=== PATIENT | male | born 1945 | race Caucasian/White ===

== ENCOUNTER 2020-10-12 05:25 | Day surgery (SDC) | payer MEDICARE ==
[2020-10-07 12:41] LABS: BASOPHILS # (AUTO) 0.1 X10'3 (0-0.2); MONOCYTES # (AUTO) 0.3 X10'3 (0-0.9)
[2020-10-07 12:43] LABS: EOSINOPHILS # (AUTO) 0.4 X10'3 (0-0.9); EOSINOPHILS % (AUTO) 4.2 % (0-6); HEMATOCRIT 37.4 % (42.0-52.0); HEMOGLOBIN 12.5 g/dl (14.0-17.9); LYMPHOCYTES # (AUTO) 4.7 X10'3 (1.1-4.8); MEAN CORPUSCULAR HGB CONC 33.5 g/dL (33.0-36.5); MEAN CORPUSCULAR VOLUME 95.5 FL (78-98); MEAN PLATELET VOLUME 9.4 FL (7.4-10.4); MONOCYTES % (AUTO) 3.7 % (2-12); NEUTROPHILS # (AUTO) 3.3 X10'3 (1.8-7.7); NEUTROPHILS % (AUTO) 38.1 % (42-75); PLATELET COUNT 230 X10'3 (140-440); RED BLOOD COUNT 3.92 X10'6 (4.70-6.10); RED CELL DISTRIBUTION WIDTH 14.5 % (11.5-14.5); WHITE BLOOD COUNT 8.8 X10'3 (4.5-11.0)
[2020-10-07 12:50] LABS: ALBUMIN 3.8 G/DL (3.4-5.0); ANION GAP 11 (8-16); BLOOD UREA NITROGEN 18 MG/DL (7-18); BUN/CREATININE RATIO 17.6 (5.4-32.0); CALCIUM 8.6 MG/DL (8.5-10.1); CHLORIDE 105 MMOL/L (99-107); CREATININE 1.02 MG/DL (0.60-1.10); GLUCOSE 121 MG/DL (70-104); POTASSIUM 4.3 MMOL/L (3.5-5.1); SODIUM 141 MMOL/L (135-145); TOTAL CARBON DIOXIDE 25.4 MMOL/L (24-32); eGFR 71 ML/MIN
[2020-10-07 12:52] LABS: PARTIAL THROMBOPLASTIN TIME 29 SECONDS (22-32)
[2020-10-07 13:26] LABS: TOTAL CELLS COUNTED 100
[2020-10-07 13:27] LABS: BURR CELLS FEW; ELLIPTOCYTES FEW; PLATELET ESTIMATE NORMAL
[2020-10-12] VITALS (10 sets, daily range): BP systolic 86–132; BP diastolic 53–75
[~2020-10-12] VITALS: Ht 180.3 cm; Wt 78.9 kg
[~2020-10-12 05:25] MED LIST: ASPI-12 PO; ATOR-2 PO; CHOL10002 PO; IRBE75TA8 PO; MAGN400C PO; METF-900 PO; PANT-47 PO
[2020-10-12] MEDS ORDERED: LOSA100T57 PO (05:51)
[2020-10-12] MEDS ORDERED: PANT-47 PO (05:51)
[2020-10-12] MEDS ORDERED: AMLO5TAB PO (05:51)
[2020-10-12] MEDS ORDERED: HYDR12.55 PO (05:51)
[2020-10-12] MEDS ORDERED: LIDOcaine/PRILOcaine 5gm cream TP ONE (06:00)
[2020-10-12] MEDS ORDERED: LORazepam 0.5 MG tablet PO PRN (06:00)
[2020-10-12] MEDS ORDERED: normal saline 1,000 ML IV SCH (06:00)
[2020-10-12] MEDS ORDERED: diphenhydrAMINE 25mg capsule PO PRN (06:00)
[2020-10-12] MEDS ORDERED: midazolam 1 mg/ML 2ml injection ONE (06:29)
[2020-10-12] MEDS ORDERED: verapamil 2.5 mg/ml inj IV ONE (06:29)
[2020-10-12] MEDS ORDERED: nitroGLYCERIN-Tridil 50MG/D5W 250 ML IV ONE (06:29)
[2020-10-12] MEDS ORDERED: fentaNYL/PF 50MCG/1 ML 2ML syringe ONE (06:30)
[2020-10-12] MEDS ORDERED: iohexol 350MG/ML 100ml bottle IV ONE (06:30)
[2020-10-12] MEDS ORDERED: heparin 1,000unit/ml 10ml vial 10 ML ONE (06:30)
[2020-10-12] MEDS ORDERED: LIDOcaine 1% (10mg/ml)w/preservative injection 20ml MDV ONE (06:30)
[2020-10-12] MEDS ORDERED: atropine 0.1mg/ml 10ml syringe ONE (07:11)
[2020-10-12] MEDS ORDERED: ondansetron/PF 4mg/2ml inj ONE (07:11)
[2020-10-12] MEDS ORDERED: HYDROcodone/acetaminophen 10/325mg tab PO PRN (07:50)
[2020-10-12] MEDS ORDERED: HYDROcodone/acetaminophen 5mg/325mg tablet PO PRN (07:50)
[2020-10-12] MEDS ORDERED: ondansetron/PF 4mg/2ml inj IV PRN (07:50)
[2020-10-12] MEDS ORDERED: OXAZEpam 15mg capsule PO PRN (07:50)
[2020-10-12] MEDS ORDERED: proCHLORperazine 10 MG/2 ml inj IV PRN (07:50)
--- NOTE | 2020-10-12 12:49 | NUR ---
Patient was in a hurry to pr as they had another appointment to get to, discharge information was discussed with patient, however I forgot to have patient sign the discharge paperwork. Patients , tosha was called and I went over all the discharge instructions again, follow up apt, and continued meds, no new medications, and patients understands all instructions. notified to hold metformin for 24 hours. Patient will followup with Dr. Garcia and dr. zuleta in November.
== END 2020-10-12 12:20 | disposition home or self-care (01) ==
LOC: SSTAY O 05:25
PROVIDERS: ATTEND Internal Medicine Interventional Cardiology
DX: I25.10 Atherosclerotic heart disease of native coronary artery without angina pectoris (principal); R94.30 Abnormal result of cardiovascular function study, unspecified; E11.9 Type 2 diabetes mellitus without complications; I10 Essential (primary) hypertension; I35.0 Nonrheumatic aortic (valve) stenosis; I34.0 Nonrheumatic mitral (valve) insufficiency; I45.10 Unspecified right bundle-branch block; R53.83 Other fatigue
CPT/HCPCS: 36415; 80048; 82948; 85007; 85025; 85610; 85730; 93454; C1769; C1894; J0461; J1644; J2001; J2250; J2405; J3010; J7030; Q0163; Q9967; 99152; A4620; A5120; J3490

== ENCOUNTER 2023-05-12 08:59 | Emergency (ER) | payer MEDICARE ==
[~2023-05-12] VITALS: Ht 180.3 cm; Wt 81.8 kg
[~2023-05-12 08:59] MED LIST changes: +AMLO5TAB PO; -CHOL10002 PO; +HYDR12.55 PO; -IRBE75TA8 PO; +LOSA100T58 PO
[2023-05-12 09:04] VITALS: BP 151/86; PULSE 59; TEMP 97.8; O2SAT 98
[2023-05-12 10:03] VITALS: RESP 16
[2023-05-12] MEDS ORDERED: METH4TAB81 PO ×3 (10:31→10:37)
[2023-05-12] MEDS ORDERED: AMOX500C2 PO ×3 (10:31→10:37)
== END 2023-05-12 10:37 | disposition home or self-care (01) ==
LOC: ER 08:59
DX: R68.84 Jaw pain (principal); K08.89 Other specified disorders of teeth and supporting structures; E78.00 Pure hypercholesterolemia, unspecified; I10 Essential (primary) hypertension; E11.9 Type 2 diabetes mellitus without complications; Z79.899 Other long term (current) drug therapy; Z79.82 Long term (current) use of aspirin
CPT/HCPCS: 99283

== ENCOUNTER 2023-06-15 13:40 | Emergency (ER) | payer MEDICARE ==
[~2023-06-15] VITALS: Ht 180.3 cm; Wt 81.6 kg
[~2023-06-15 13:40] MED LIST changes: +AMOX500C2 PO; +METH4TAB81 PO
[2023-06-15 16:26] VITALS: BP 134/80; PULSE 80; RESP 16; TEMP 98.1; O2SAT 94
== END 2023-06-15 16:29 | disposition home or self-care (01) ==
LOC: ER 13:41
DX: S69.92XA Unspecified injury of left wrist, hand and finger(s), initial encounter (principal); E78.00 Pure hypercholesterolemia, unspecified; I10 Essential (primary) hypertension; E11.9 Type 2 diabetes mellitus without complications; Z79.899 Other long term (current) drug therapy; Z79.82 Long term (current) use of aspirin; Z79.2 Long term (current) use of antibiotics; X58.XXXA Exposure to other specified factors, initial encounter; Y93.89 Activity, other specified; Y92.89 Other specified places as the place of occurrence of the external cause; Y99.8 Other external cause status
CPT/HCPCS: 73130; 99284

== ENCOUNTER 2023-06-21 17:48 | Emergency (ER) | payer MEDICARE ==
[~2023-06-21] VITALS: Ht 180.3 cm; Wt 83.5 kg
[2023-06-21 18:30] VITALS: BP 156/75; PULSE 103; RESP 18; TEMP 100.6; O2SAT 97
[2023-06-21] MEDS ORDERED: AZIT250T PO (20:48)
[2023-06-21] MEDS ORDERED: PRED10TA23 PO (20:48)
[2023-06-21] MEDS ORDERED: ALBU8HFA INH (20:49)
== END 2023-06-21 21:00 | disposition home or self-care (01) ==
LOC: ER 17:49
DX: U07.1 COVID-19 (principal); M79.18 Myalgia, other site; E78.00 Pure hypercholesterolemia, unspecified; I10 Essential (primary) hypertension; E11.9 Type 2 diabetes mellitus without complications; I25.10 Atherosclerotic heart disease of native coronary artery without angina pectoris; Z79.2 Long term (current) use of antibiotics; Z88.8 Allergy status to other drugs, medicaments and biological substances; Z79.899 Other long term (current) drug therapy
CPT/HCPCS: 36415; 71045; 87502; 87503; 87811; 99284

== ENCOUNTER 2023-07-07 10:41 | Emergency (ER) | payer MEDICARE ==
[~2023-07-07] VITALS: Ht 180.3 cm; Wt 80.0 kg
[~2023-07-07 10:41] MED LIST changes: +ALBU8HFA INH; +AZIT250T PO
[2023-07-07] MEDS ORDERED: LIDOcaine 1% W/epiNEPHrine 1:200,000 10ml vial IJ ONE (11:25)
[2023-07-07] MEDS: LIDOcaine 1% W/epiNEPHrine 1:100,000 20ml vial IJ ONE (11:38)
[2023-07-07 12:59] VITALS: BP 163/90; PULSE 63; RESP 16; TEMP 98.5; O2SAT 98
== END 2023-07-07 13:00 | disposition home or self-care (01) ==
LOC: ER 10:42
DX: L76.22 Postprocedural hemorrhage of skin and subcutaneous tissue following other procedure (principal); E11.9 Type 2 diabetes mellitus without complications; I10 Essential (primary) hypertension; E78.00 Pure hypercholesterolemia, unspecified; I25.10 Atherosclerotic heart disease of native coronary artery without angina pectoris; Z72.89 Other problems related to lifestyle; Z88.8 Allergy status to other drugs, medicaments and biological substances; Z79.899 Other long term (current) drug therapy; Z79.82 Long term (current) use of aspirin; Z97.2 Presence of dental prosthetic device (complete) (partial)
CPT/HCPCS: 99281; 99282; A6449

== ENCOUNTER 2023-11-01 18:48 | Emergency (ER) | payer MEDICARE ==
[~2023-11-01] VITALS: Ht 180.3 cm; Wt 81.8 kg
[~2023-11-01 18:48] MED LIST changes: -ALBU8HFA INH
[2023-11-01] MEDS: ketorolac tromethamine 15mg/ml inj. IM ONE (21:05)
[2023-11-01] MEDS: ondansetron 4mg rapidly disintigrating tab PO ONE (21:13)
[2023-11-01 22:26] VITALS: BP 134/87; PULSE 68; RESP 18; TEMP 98.3; O2SAT 99
== END 2023-11-01 22:35 | disposition home or self-care (01) ==
LOC: ER 18:48
DX: M25.561 Pain in right knee (principal); I25.10 Atherosclerotic heart disease of native coronary artery without angina pectoris; E78.00 Pure hypercholesterolemia, unspecified; I10 Essential (primary) hypertension; E11.9 Type 2 diabetes mellitus without complications; Z72.89 Other problems related to lifestyle; Z91.013 Allergy to seafood; Z79.2 Long term (current) use of antibiotics; Z79.82 Long term (current) use of aspirin; Z79.899 Other long term (current) drug therapy; Z79.84 Long term (current) use of oral hypoglycemic drugs; Z79.52 Long term (current) use of systemic steroids
CPT/HCPCS: 73564; 93971; 96372; 99285; J1885

== ENCOUNTER 2023-12-01 12:48 | Emergency (ER) | payer MEDICARE ==
[~2023-12-01] VITALS: Ht 180.3 cm; Wt 80.0 kg
[2023-12-01 12:51] VITALS: TEMP 98.7
[2023-12-01 13:53] LABS: BASOPHILS # (AUTO) 0.1 X10'3 (0-0.2); BASOPHILS % (AUTO) 0.7 % (0-1); EOSINOPHILS # (AUTO) 0.2 X10'3 (0-0.9); EOSINOPHILS % (AUTO) 1.8 % (0-6); HEMATOCRIT 27.7 % (42.0-52.0); HEMOGLOBIN 9.3 g/dl (14.0-17.9); LYMPHOCYTES # (AUTO) 4.3 X10'3 (1.1-4.8); LYMPHOCYTES % (AUTO) 38.7 % (21-51); MEAN CORPUSCULAR HEMOGLOBIN 32.8 PG (27.0-31.0); MEAN CORPUSCULAR HGB CONC 33.4 g/dL (33.0-36.5); MONOCYTES # (AUTO) 0.4 X10'3 (0-0.9); MONOCYTES % (AUTO) 3.3 % (2-12); NEUTROPHILS # (AUTO) 6.1 X10'3 (1.8-7.7); NEUTROPHILS % (AUTO) 55.5 % (42-75); PLATELET COUNT 242 X10'3 (140-440); RED BLOOD COUNT 2.83 X10'6 (4.70-6.10); RED CELL DISTRIBUTION WIDTH 14.7 % (11.5-14.5); WHITE BLOOD COUNT 11.1 X10'3 (4.5-11.0)
[2023-12-01 14:08] LABS: APTT 53 SECONDS (22-32); INR 3.3 INR; PROTHROMBIN TIME 32.5 SECONDS (9.0-12.0)
[2023-12-01 14:15] LABS: ALANINE AMINOTRANSFERASE 31 U/L (12-78); ALBUMIN 3.4 G/DL (3.4-5.0); ALBUMIN/GLOBULIN RATIO 0.9 (1.1-1.5); ALKALINE PHOSPHATASE 99 IU/L (46-116); ANION GAP 8 (8-16); ASPARTATE AMINO TRANSFERASE 25 U/L (10-37); BILIRUBIN,TOTAL 0.9 MG/DL (0.1-1.0); BLOOD UREA NITROGEN 15 MG/DL (7-18); BUN/CREATININE RATIO 14.7 (10.0-20.0); C-REACTIVE PROTEIN 9.39 MG/DL (0.0-0.5); CALCIUM 8.8 MG/DL (8.5-10.1); CHLORIDE 103 MMOL/L (99-107); CREATININE 1.02 MG/DL (0.60-1.10); GLUCOSE 132 MG/DL (70-104); POTASSIUM 3.8 MMOL/L (3.5-5.1); SODIUM 137 MMOL/L (135-145); TOTAL CARBON DIOXIDE 25.9 MMOL/L (24-32); TOTAL PROTEIN 7.2 G/DL (6.4-8.2); eCRCL 64 ML/MIN; eGFR 71 ML/MIN
[2023-12-01] MEDS: HYDROcodone/acetaminophen 10/325mg tab PO ONE (16:17)
[2023-12-01 16:18] VITALS: BP 148/74; PULSE 82; RESP 16; O2SAT 98
== END 2023-12-01 16:21 | disposition home or self-care (01) ==
LOC: ER 12:49
DX: M25.461 Effusion, right knee (principal); I25.10 Atherosclerotic heart disease of native coronary artery without angina pectoris; E78.00 Pure hypercholesterolemia, unspecified; I10 Essential (primary) hypertension; E11.9 Type 2 diabetes mellitus without complications; Z72.89 Other problems related to lifestyle
CPT/HCPCS: 36415; 73564; 80053; 83605; 84145; 85025; 85610; 85651; 85730; 86140; 87040; 93971; 99284

== ENCOUNTER 2025-01-27 11:10 | Day surgery (SDC) | payer MEDICARE, OTHER ==
[2025-01-23 09:24] LABS: MEAN PLATELET VOLUME 8.5 FL (7.4-10.4); RED CELL DISTRIBUTION WIDTH 13.6 % (11.5-14.5)
[2025-01-23 09:36] LABS: APTT 28 SECONDS (22-32); INR 1.0 INR
[2025-01-23 09:42] LABS: CHOL/HDL RATIO 2.5 (0.00-4.99); CREATININE 1.01 MG/DL (0.60-1.10); LDL CHOLESTEROL 57 MG/DL (50-100); TOTAL CARBON DIOXIDE 25.0 MMOL/L (24-32); eGFR 71 ML/MIN
[2025-01-23 10:22] LABS: EOSINOPHILS % (MANUAL) 4.0 % (0-6); LYMPHOCYTES % (MANUAL) 59.0 % (21-51); MONOCYTES % (MANUAL) 6.0 % (2-12); NEUTROPHILS % (MANUAL) 27.0 % (42-75); PLATELET ESTIMATE NORMAL; REACTIVE LYMPHOCYTES % 4.0 % (0-0)
[2025-01-27] VITALS (9 sets, daily range): BP systolic 109–151; BP diastolic 63–80; PULSE 56–70; RESP 13–17; TEMP 98.6; O2SAT 96–98
[~2025-01-27] VITALS: Ht 180.3 cm; Wt 82.4 kg
--- NOTE | 2025-01-27 11:47 | ELECTROCARDIOGRAPH REPORT ---
[facility] Test Date: 2025-01-27 Test Time: 11:45:17 Pat Name: HANNAH FLANNERY Department: [facility] Patient ID: [id number] Room: Gender: M Issuer: GWYN : [id number] Requested By: GLO BARILLAS Order Number: [id number] Reading MD: Dr. ASHLYN Charlton Measurements Intervals [place] Rate: 67 P: -25 HI: 167 QRS: -60 QRSD: 136 T: -2 QT: 456 QTc: 482 Interpretive Statements Sinus rhythm RBBB and LAFB Probable left ventricular hypertrophy Electronically Signed On 01-27-2025 16:30:[address] ASHLYN Charlton Please click the below link to view image of tracing.
[2025-01-27] MEDS ORDERED: FLUO40CR9 TOP (11:48)
[2025-01-27] MEDS ORDERED: CYAN250014 PO (11:48)
[2025-01-27] MEDS ORDERED: LEVO125T PO (11:48)
[2025-01-27] MEDS ORDERED: EZET10TA6 PO (11:48)
[2025-01-27] MEDS ORDERED: METO50TA17 PO (11:48)
[2025-01-27] MEDS ORDERED: FERR-28 PO (11:48)
[2025-01-27] MEDS ORDERED: GLIP1TAB6 PO (11:48)
[2025-01-27] MEDS ORDERED: LOSA50TA64 PO (11:48)
[2025-01-27] MEDS ORDERED: CHOL20004 PO (11:48)
[2025-01-27] MEDS ORDERED: midazolam 1 mg/ML 2ml injection ONE (12:21)
[2025-01-27] MEDS ORDERED: LIDOcaine 1% 30ml preserv. free vial ONE (12:21)
[2025-01-27] MEDS ORDERED: fentaNYL/PF 50MCG/1 ML 2ML syringe ONE (12:22)
[2025-01-27] MEDS ORDERED: heparin 1,000unit/ml 10ml vial 10 ML ONE (13:01)
[2025-01-27] MEDS ORDERED: clopidogrel 300mg tablet ONE (13:01)
[2025-01-27] MEDS ORDERED: nitroGLYCERIN 500mcg/5mL D5W 5 ML IV ONE (13:16)
--- NOTE | 2025-01-27 13:53 | CARDIAC CATH REPORT ---
Cardiac Cath Report Providers to CC CC: KIANNA BARILLAS MD Procedure Comments: 1. Left Heart Catheterization 2. Selective Coronary Angiography 3. Coronary artery bypass angiography 4. Percutaneous Coronary Intervention of the Left Anterior Descending x 1 5. Right Femoral artery access 6. Right femoral artery angiography 7. Closure of femoral artery with Perclose x 1 Brief History/Indications: 79yo man with HTN, HLD, DM, Aortic Stenosis, CAD(s/p 2vCABG) with increased chest tightness and apical ischemia on stress testing. Techniques: After informed consent was obtained, the patient was brought to the cardiac catheterization laboratory and prepped and draped in usual sterile fashion for left heart catheterization and other procedures mentioned above. The right groin was anesthetized with 1% Lidocaine and the femoral artery accessed via the Seldinger technique after which a 6Fr sheath was placed. Through this a JL4 was used to engage the left coronary artery, a JR4 to engage the right coronary artery, coronary artery bypass grafts, an IM to engage left internal mammary artery, and left ventricle. At the conclusion of the case the sheath was removed and hemostasis obtained with a Mynx device. See below for interventional details Findings Findings: HEMODYNAMICS: LV: 177/3 mmHg LVEDP: 15 mmHg Ao: 136/59, MAP 88 mmHg CORONARY ARTERIES: Rt Dominant LMCA: Ostial 30% stenosis LAD: Ostial 50-60% stenosis, mid 40% stenosis, distal 80-90% stenosis Dx: Luminal Irregularities LCx: Ostial 50-60% stenosis OM1: 50-60% stenosis RCA: Diffuse 20% stenosis of prox-distal RCA PDA: Tapers after the proximal portion PL: Luminal Irregularities GRAFTS: KEN-LAD: Patent, small caliber. Appears to insert proximal to distal LAD stenosis SVG-OM: Patent PERCUTANEOUS CORONARY INTERVENTION of the LAD: An XB LAD 4.0 guide was used to engage the left coronary artery. The LAD lesion was crossed with a BMW wire. Pre-dilatation was performed with a 2.0x12mm balloon. Repeat angiography revealed adequate pre-treatment of the lesion without evidence of dissection. Subsequently, a 2.5x15mm [place] BREANA was deployed across the lesion. The lesion was not post-dilated. Repeat angiography revealed adequate stent expansion without evidence of dissection. Results Results: 1. Severe [place] vessel CAD with ostial-mid LAD and LCx disease. 2. Patent KEN-LAD(small caliber, appears to insert proximal to distal LAD lesion), patent SVG-OM. 3. PCI of the distal LAD with 2.5x15mm [place] BREANA given KEN inserts proximal to such. 4. Moderate to severe with peak-peak gradient of 40mmHg 5. RFA Access, closed with Mynx (high bifurcation) RECOMMENDATIONS: 1. Cont ASA 81mg QD indefinitely 2. Cont plavix 75mg QD x 6 months 3. Recommend uptitration of other max-tolerated GDMT 4. If cont symptoms, recommend repeat TTE to re-assess GLO BARILLAS MD Jan 27, 2025 13:53
[2025-01-27] MEDS ORDERED: HYDROcodone/acetaminophen 10/325mg tab PO PRN (13:55)
[2025-01-27] MEDS ORDERED: HYDROcodone/acetaminophen 5mg/325mg tablet PO PRN (13:55)
[2025-01-27] MEDS ORDERED: CLOP75TA33 PO (13:59)
== END 2025-01-27 16:10 | disposition home or self-care (01) ==
LOC: SSTAY O 11:10
PROVIDERS: ATTEND Student in an Organized Health Care Education/Training Program
DX: R94.39 Abnormal result of other cardiovascular function study (principal); I25.118 Atherosclerotic heart disease of native coronary artery with other forms of angina pectoris; I45.2 Bifascicular block; I35.0 Nonrheumatic aortic (valve) stenosis; I10 Essential (primary) hypertension; E11.9 Type 2 diabetes mellitus without complications; Z86.718 Personal history of other venous thrombosis and embolism; Z79.01 Long term (current) use of anticoagulants; Z79.899 Other long term (current) drug therapy; Z98.890 Other specified postprocedural states
CPT/HCPCS: 36415; 80048; 80061; 82948; 83695; 85025; 85610; 85730; 93005; 93459; 99152; 99153; A6258; C1725; C1751; C1769; C1874; C9600; J1644; J2003; J2250; J3010; J3490; J7030; Q0163; Q9967; Z7610; 85007; 93458